=== PATIENT | female | born 1945 | race Native Hawaiian/Other Pacific Islander ===

== ENCOUNTER 2016-09-27 10:51 | Outpatient (CLI) | payer OTHER ==
[2016-09-27 11:21] LABS: PLATELET COUNT 132 K/uL (152-353)
[2016-09-27 11:33] LABS: POTASSIUM 3.6 mmol/L (3.6-5.2); SODIUM 139 mmol/L (136-145)
== END 2016-09-27 19:26 | disposition home or self-care (01) ==
LOC: LABW 10:51
PROVIDERS: Dermatology
DX: Z79.899 Other long term (current) drug therapy (principal); Z51.81 Encounter for therapeutic drug level monitoring
CPT/HCPCS: 36415; 80053; 85027

== ENCOUNTER 2016-11-19 10:26 | Outpatient (CLI) | payer OTHER ==
[2016-11-19 12:17] LABS: POTASSIUM 3.7 mmol/L (3.6-5.2); SODIUM 142 mmol/L (136-145)
== END 2016-11-19 11:30 | disposition home or self-care (01) ==
LOC: LABW 10:26
PROVIDERS: Internal Medicine Nephrology
DX: I10 Essential (primary) hypertension (principal)
CPT/HCPCS: 36415; 80048

== ENCOUNTER 2017-02-25 14:47 | Outpatient (CLI) | payer OTHER ==
[2017-03-04] MEDS ORDERED: CARV12.5 PO (19:44)
[2017-03-04] MEDS ORDERED: HYZAAR1 TA2 PO (19:44)
[2017-03-04] MEDS ORDERED: LIPITOR10 MG PO (19:45)
[2017-03-04] MEDS ORDERED: B121000 MCG PO (19:47)
[2017-03-04] MEDS ORDERED: ALPH-E-MIXED400 UNIT OR (19:49)
[2017-03-04] MEDS ORDERED: ASPIRIN 81 LOW81 MG PO (19:50)
[2017-03-04] MEDS ORDERED: BREO ELLIPTA 101 INH IN (19:53)
[2017-03-04] MEDS ORDERED: OMEGA 31000 MG OR (19:54)
[2017-03-04] MEDS ORDERED: D32000 UNIT OR (19:55)
[2017-03-04] MEDS ORDERED: PROAIR HFA IN (19:56)
[2017-03-04] MEDS ORDERED: AMLO2.5T PO (19:57)
[2017-03-04] MEDS ORDERED: OTEZLA 10 & 201 TAB PO (19:58)
== END 2017-02-25 19:18 | disposition home or self-care (01) ==
LOC: RAD 14:47
DX: J20.8 Acute bronchitis due to other specified organisms (principal)

== ENCOUNTER 2017-10-12 08:12 | Outpatient (CLI) | payer OTHER ==
[~2017-10-12 08:12] MED LIST: ALPH-E-MIXED400 UNIT OR; AMLO2.5T PO; ASPIRIN 81 LOW81 MG PO; B121000 MCG PO; BREO ELLIPTA 101 INH IN; CARV12.5 PO; D32000 UNIT OR; HYZAAR1 TA2 PO; LIPITOR10 MG PO; OMEGA 31000 MG OR; OTEZLA 10 & 201 TAB PO; PROAIR HFA IN
[2017-10-12 08:44] LABS: PLATELET COUNT 148 K/uL (152-353)
[2017-10-12 09:57] LABS: POTASSIUM 4.2 mmol/L (3.6-5.2)
== END 2017-10-12 21:26 | disposition home or self-care (01) ==
LOC: LABW 08:12
PROVIDERS: Internal Medicine Nephrology
DX: I10 Essential (primary) hypertension (principal); E66.8 Other obesity; E55.9 Vitamin D deficiency, unspecified; R73.09 Other abnormal glucose
CPT/HCPCS: 36415; 80053; 80061; 82306; 82570; 84155; 85027

== ENCOUNTER 2017-12-24 13:52 | Inpatient (IN) | payer OTHER ==
[~2017-12-24] VITALS: Ht 165.1 cm; Wt 81.0 kg
[2017-12-24] MEDS ORDERED: ASCO500T18 PO (15:16)
[2017-12-24] MEDS ORDERED: BIOTIN1000 MCG PO (15:18)
[2017-12-24 17:32] LABS: PLATELET COUNT 124 K/uL (152-353)
[2017-12-24 18:19] VITALS: BP 130/49; TEMP 99; Ht 165.1 cm; Wt 81.0 kg
[2017-12-24 19:56] VITALS: BP 142/50; TEMP 100.5
[2017-12-24 23:32] VITALS: BP 144/44; TEMP 98.9
[2017-12-25 04:00] VITALS: BP 145/49; TEMP 100.3
[2017-12-25 06:44] LABS: PLATELET COUNT 120 K/uL (152-353)
[2017-12-25 06:59] LABS: POTASSIUM 3.7 mmol/L (3.6-5.2)
[2017-12-25 08:00] VITALS: BP 133/47; TEMP 99
[2017-12-25 12:00] VITALS: BP 154/46; TEMP 98.5
[2017-12-25 16:00] VITALS: BP 153/70; TEMP 99.7
[2017-12-25 20:00] VITALS: BP 150/57; TEMP 99.2
[2017-12-25 23:50] VITALS: BP 117/33; TEMP 99.3
[2017-12-26 04:00] VITALS: BP 120/46; TEMP 98.3
[2017-12-26 05:35] LABS: PLATELET COUNT 139 K/uL (152-353)
[2017-12-26 05:50] LABS: POTASSIUM 3.7 mmol/L (3.6-5.2)
[2017-12-26 07:16] VITALS: BP 124/45; TEMP 98.1
[2017-12-26 12:13] VITALS: BP 127/45; TEMP 97.8
== END 2017-12-26 17:09 | disposition short-term general hospital (02) | DRG 195 ==
LOC: MED/SURG 13:52
PROVIDERS: ADMIT Family Medicine
DX: J18.9 Pneumonia, unspecified organism (principal); J20.8 Acute bronchitis due to other specified organisms; E86.0 Dehydration; I10 Essential (primary) hypertension; H91.93 Unspecified hearing loss, bilateral; D72.828 Other elevated white blood cell count; R09.02 Hypoxemia
CPT/HCPCS: 36415; 80053; 83605; 83735; 83880; 84100; 85007; 85027; 85379; 87040; 87070; 87205; 94640; 94664; 94668; 94760; J0456; J0696; J1100; Q9963

== ENCOUNTER 2017-12-26 17:14 | Outpatient (CLI) | payer OTHER ==
[~2017-12-26 17:14] MED LIST changes: +ASCO500T18 PO; +BIOTIN1000 MCG PO
== END 2017-12-26 18:17 | disposition short-term general hospital (02) ==
LOC: AMB 17:14
DX: J18.9 Pneumonia, unspecified organism (principal); J20.8 Acute bronchitis due to other specified organisms; E86.0 Dehydration; I10 Essential (primary) hypertension; D72.828 Other elevated white blood cell count; H91.93 Unspecified hearing loss, bilateral
CPT/HCPCS: A0425; A0427

== ENCOUNTER 2018-04-10 15:14 | Outpatient (CLI) | payer OTHER | END 2018-04-10 19:27 | disposition home or self-care (01) | LOC: RAD 15:14 | DX: J44.1 Chronic obstructive pulmonary disease with (acute) exacerbation (principal) ==

== ENCOUNTER 2018-04-12 09:56 | Outpatient (CLI) | payer OTHER ==
[2018-04-12 10:19] LABS: POTASSIUM 4.2 mmol/L (3.6-5.2)
[2018-04-12 10:21] LABS: PLATELET COUNT 200 K/uL (152-353)
== END 2018-04-12 20:30 | disposition home or self-care (01) ==
LOC: LABW 09:56
PROVIDERS: Internal Medicine Nephrology
DX: I10 Essential (primary) hypertension (principal)
CPT/HCPCS: 36415; 80048; 85027

== ENCOUNTER 2018-09-11 11:51 | Outpatient (CLI) | payer OTHER | END 2018-09-11 23:01 | disposition home or self-care (01) | LOC: CT 11:51 | DX: S09.8XXA Other specified injuries of head, initial encounter (principal); W01.0XXA Fall on same level from slipping, tripping and stumbling without subsequent striking against object, initial encounter ==

== ENCOUNTER 2018-10-18 09:20 | Outpatient (CLI) | payer OTHER ==
[2018-10-18 09:58] LABS: PLATELET COUNT 144 K/uL (152-353)
== END 2018-10-18 19:11 | disposition home or self-care (01) ==
LOC: LABW 09:20
PROVIDERS: Internal Medicine Nephrology
DX: I10 Essential (primary) hypertension (principal); J44.9 Chronic obstructive pulmonary disease, unspecified; R73.09 Other abnormal glucose
CPT/HCPCS: 36415; 80053; 80061; 85027

== ENCOUNTER 2019-03-06 06:55 | Inpatient (IN) | payer OTHER ==
[2019-03-06] VITALS (21 sets, daily range): BP systolic 88–187; BP diastolic 34–86; TEMP 97.7–98.7; Ht 165.1 cm; Wt 81.7 kg
[~2019-03-06] VITALS: Ht 165.1 cm; Wt 81.7 kg
[2019-03-06 07:40] LABS: PLATELET COUNT 107 K/uL (152-353)
[2019-03-06 08:24] LABS: POTASSIUM 3.8 mmol/L (3.6-5.2); SODIUM 137 mmol/L (136-145)
[2019-03-06 09:10] LABS: PARTIAL THROMBOPLASTIN TIME 19.4 SECONDS (24.5-33.6)
[2019-03-06] MEDS ORDERED: COZAAR100 MG PO (17:21)
[2019-03-06] MEDS ORDERED: BREO ELLIPTA 101 INH INH (17:22)
[2019-03-06] MEDS ORDERED: HYDROCHLOROT12.5 M1 PO (17:22)
[2019-03-06] MEDS ORDERED: ALBU90AE13 INH (17:22)
[2019-03-06] MEDS ORDERED: ALBUTEROL0.083 % INH (17:23)
[2019-03-06] MEDS ORDERED: FLONASE AL50 MCG/ACT NAS (17:24)
[2019-03-06] MEDS ORDERED: BENICAR40 MG PO (17:25)
[2019-03-07] VITALS (16 sets, daily range): BP systolic 104–153; BP diastolic 37–337; TEMP 97.7–101.4
[2019-03-07 05:23] LABS: PLATELET COUNT 125 K/uL (152-353)
[2019-03-07 06:06] LABS: SODIUM 136 mmol/L (136-145)
[2019-03-08] VITALS: BP 103/46; TEMP 98
[2019-03-08 04:00] VITALS: BP 120/43; TEMP 98.3
[2019-03-08 05:30] LABS: PLATELET COUNT 124 K/uL (152-353)
[2019-03-08 06:06] LABS: POTASSIUM 4.3 mmol/L (3.6-5.2)
[2019-03-08 13:35] VITALS: BP 115/56; TEMP 98.9
[2019-03-08 20:00] VITALS: BP 108/50; TEMP 98
[2019-03-08 23:58] VITALS: BP 89/46; TEMP 98.4
[2019-03-09 03:58] VITALS: BP 104/47; TEMP 97.8
[2019-03-09 08:00] VITALS: BP 118/52; TEMP 98.6
[2019-03-09 09:05] LABS: PLATELET COUNT 107 K/uL (152-353)
[2019-03-09 09:07] LABS: POTASSIUM 3.8 mmol/L (3.6-5.2)
[2019-03-10 08:24] VITALS: BP 141/64; TEMP 98.1
[2019-03-10 09:08] LABS: PLATELET COUNT 124 K/uL (152-353)
[2019-03-10 09:24] LABS: POTASSIUM 3.5 mmol/L (3.6-5.2)
[2019-03-10 19:54] VITALS: BP 147/65; TEMP 98
[2019-03-10 23:54] VITALS: BP 137/63; TEMP 98.3
[2019-03-11 03:51] VITALS: BP 130/53; TEMP 98.5
[2019-03-11 05:13] LABS: PLATELET COUNT 118 K/uL (152-353)
[2019-03-11 05:39] LABS: POTASSIUM 3.6 mmol/L (3.6-5.2)
[2019-03-11 12:00] VITALS: BP 125/75; TEMP 98.6
[2019-03-11 16:00] VITALS: BP 131/66; TEMP 97.6
== END 2019-03-11 18:15 | disposition home or self-care (01) | DRG 308 ==
LOC: ED 06:55 → PCU 12:15 → ICU 12:15 → PCU 12:16 → ICU 13:27 → MED/SURG 03-07 17:35
PROVIDERS: Student in an Organized Health Care Education/Training Program; ADMIT Family Medicine
DX: I48.91 Unspecified atrial fibrillation (principal); J18.8 Other pneumonia, unspecified organism; J44.0 Chronic obstructive pulmonary disease with (acute) lower respiratory infection
CPT/HCPCS: 36415; 80048; 80053; 80202; 82550; 83735; 83880; 84100; 84132; 84484; 85027; 85379; 85610; 85730; 87040; 87070; 87205; 87502; 93005; 93306; 94640; 94664; 94668; 94760; 96365; 96375; 99284; 99285; J0456; J1642; J1644; J1885; J1956; J2930; J3370; J3475; Q9963

== ENCOUNTER 2019-05-17 08:24 | Outpatient (CLI) | payer OTHER ==
[~2019-05-17 08:24] MED LIST changes: +ALBU90AE13 INH; +ALBUTEROL0.083 % INH; +BENICAR40 MG PO; +BREO ELLIPTA 101 INH INH; +COZAAR100 MG PO; +FLONASE AL50 MCG/ACT NAS; +HYDROCHLOROT12.5 M1 PO
[2019-05-17 10:09] LABS: PLATELET COUNT 189 K/uL (152-353)
[2019-05-17 10:12] LABS: POTASSIUM 3.3 mmol/L (3.6-5.2)
== END 2019-05-17 20:11 | disposition home or self-care (01) ==
LOC: LABW 08:24
PROVIDERS: Internal Medicine Nephrology
DX: R73.09 Other abnormal glucose (principal); R05 Cough; I10 Essential (primary) hypertension; E78.00 Pure hypercholesterolemia, unspecified; E66.8 Other obesity
CPT/HCPCS: 36415; 80053; 82570; 84155; 85027

== ENCOUNTER 2019-08-14 08:07 | Outpatient (CLI) | payer OTHER | END 2019-08-14 19:13 | disposition home or self-care (01) | LOC: CT 08:07 | DX: Z91.81 History of falling (principal); R51 Headache ==

== ENCOUNTER 2019-12-04 10:43 | Outpatient (CLI) | payer OTHER ==
[2019-12-04 10:59] LABS: PLATELET COUNT 115 K/uL (152-353)
[2019-12-04 11:17] LABS: POTASSIUM 3.9 mmol/L (3.6-5.2)
== END 2019-12-04 20:34 | disposition home or self-care (01) ==
LOC: LABW 10:43
PROVIDERS: Internal Medicine Pulmonary Disease
DX: J45.40 Moderate persistent asthma, uncomplicated (principal)
CPT/HCPCS: 36415; 80053; 85027

== ENCOUNTER 2020-07-07 12:05 | Outpatient (CLI) | payer OTHER | END 2020-07-07 19:19 | disposition home or self-care (01) | LOC: RAD 12:05 | PROVIDERS: ATTEND Family Medicine | DX: R05 Cough (principal) ==

== ENCOUNTER → 2021-02-18 | Outpatient (CLI) | payer OTHER ==
[2021-02-18 10:27] LABS: PLATELET COUNT 197 K/uL (152-353)
[2021-02-18 10:40] LABS: POTASSIUM 4.5 mmol/L (3.6-5.2)
== END ==
LOC: LABW 10:13
PROVIDERS: ATTEND Internal Medicine Nephrology
DX: E66.9 Obesity, unspecified (principal); E78.00 Pure hypercholesterolemia, unspecified; R73.09 Other abnormal glucose; D69.6 Thrombocytopenia, unspecified; I48.91 Unspecified atrial fibrillation; J44.9 Chronic obstructive pulmonary disease, unspecified; N18.9 Chronic kidney disease, unspecified; Z79.01 Long term (current) use of anticoagulants; I12.9 Hypertensive chronic kidney disease with stage 1 through stage 4 chronic kidney disease, or unspecified chronic kidney disease
CPT/HCPCS: 36415; 80053; 80061; 85027

== ENCOUNTER 2021-04-15 13:01 | Outpatient (CLI) | payer OTHER | END 2021-04-15 20:44 | disposition home or self-care (01) | LOC: RAD 13:01 | PROVIDERS: ATTEND Family Medicine | DX: J44.0 Chronic obstructive pulmonary disease with (acute) lower respiratory infection (principal) ==

== ENCOUNTER 2021-08-04 14:42 | Outpatient (CLI) | payer OTHER, MEDICARE | END 2021-08-04 19:06 | disposition home or self-care (01) | LOC: US 14:42 | PROVIDERS: ATTEND Nurse Practitioner Family | DX: I10 Essential (primary) hypertension (principal) ==

== ENCOUNTER 2021-08-20 14:34 | Emergency (ER) | payer OTHER, MEDICARE ==
[~2021-08-20] VITALS: Ht 165.1 cm; Wt 78.0 kg
[2021-08-20 14:40] VITALS: TEMP 97.2
[2021-08-20 17:05] VITALS: BP 128/43
== END 2021-08-20 17:27 | disposition home or self-care (01) ==
LOC: ED 14:34
PROC: 2W39X1Z Immobilization of Left Upper Extremity using Splint (ICD-10-PCS; principal; 2021-08-20)
DX: S42.252A Displaced fracture of greater tuberosity of left humerus, initial encounter for closed fracture (principal); S13.8XXA Sprain of joints and ligaments of other parts of neck, initial encounter; R41.3 Other amnesia; W01.0XXA Fall on same level from slipping, tripping and stumbling without subsequent striking against object, initial encounter; Y92.213 High school as the place of occurrence of the external cause
CPT/HCPCS: 96372; 99283; J1170; J1885; J2405

== ENCOUNTER 2022-06-11 10:22 | Outpatient (CLI) | payer BC ==
[2022-06-11 10:49] LABS: PLATELET COUNT 143 K/uL (152-353)
[2022-06-11 11:24] LABS: POTASSIUM 3.6 mmol/L (3.6-5.2)
== END 2022-06-11 19:52 | disposition home or self-care (01) ==
LOC: LABW 10:22
PROVIDERS: ATTEND Internal Medicine Nephrology
DX: E78.00 Pure hypercholesterolemia, unspecified (principal); R73.09 Other abnormal glucose; D69.6 Thrombocytopenia, unspecified; I48.91 Unspecified atrial fibrillation; N18.31 Chronic kidney disease, stage 3a; Z79.01 Long term (current) use of anticoagulants; I12.9 Hypertensive chronic kidney disease with stage 1 through stage 4 chronic kidney disease, or unspecified chronic kidney disease; R82.998 Other abnormal findings in urine
CPT/HCPCS: 36415; 80069; 81000; 82306; 82570; 83970; 84156; 84550; 85027; 87077; 87086; 87088; 87186

== ENCOUNTER 2022-08-25 12:06 | Outpatient (CLI) | payer BC | END 2022-08-25 23:01 | disposition home or self-care (01) | LOC: RAD 12:06 | PROVIDERS: ATTEND Nurse Practitioner Family | DX: J44.1 Chronic obstructive pulmonary disease with (acute) exacerbation (principal) ==

== ENCOUNTER 2022-10-05 09:21 | Outpatient (CLI) | payer BC, OTHER | END 2022-10-05 19:20 | disposition home or self-care (01) | LOC: MAMMO 09:21 | PROVIDERS: ATTEND Nurse Practitioner Family | DX: N63.10 Unspecified lump in the right breast, unspecified quadrant (principal); N64.59 Other signs and symptoms in breast | CPT/HCPCS: G0279 ==

== ENCOUNTER 2022-10-22 01:55 | Observation (INO) | payer BC, OTHER ==
[~2022-10-22] VITALS: Ht 165.1 cm; Wt 70.8 kg
[2022-10-22] VITALS (7 sets, daily range): BP systolic 94–148; BP diastolic 48–79; TEMP 97.4–98.7; Ht 165.1 cm; Wt 70.8 kg
[2022-10-22 03:07] LABS: POTASSIUM 3.4 mmol/L (3.6-5.2)
[2022-10-22 03:17] LABS: PARTIAL THROMBOPLASTIN TIME 32.1 SECONDS (23.9-36.7)
[2022-10-22 03:21] LABS: PLATELET COUNT 148 K/uL (152-353)
[2022-10-22] MEDS ORDERED: HYDROCHLOROTHIAZIDE PO (10:27)
[2022-10-22] MEDS ORDERED: DONEPEZIL HYDRO10 MG PO (10:28)
[2022-10-22] MEDS ORDERED: MONT10TA PO (10:28)
[2022-10-22] MEDS ORDERED: FLONASE AL50 MCG/ACT NAS (10:29)
[2022-10-22] MEDS ORDERED: ELIQUIS5 MG PO (10:29)
[2022-10-22] MEDS ORDERED: CYPROHEPTADINE H4 MG PO (10:29)
[2022-10-22] MEDS ORDERED: LIPITOR20 MG PO (10:30)
[2022-10-22] MEDS ORDERED: LEVAQUIN250 MG PO (15:20)
== END 2022-10-22 11:16 | disposition home or self-care (01) ==
LOC: ED 01:55 → MED/SURG 03:32
PROVIDERS: Family Medicine; ADMIT Internal Medicine; ATTEND Internal Medicine
DX: R07.89 Other chest pain (principal); N39.0 Urinary tract infection, site not specified; I48.20 Chronic atrial fibrillation, unspecified; Z79.01 Long term (current) use of anticoagulants; J44.9 Chronic obstructive pulmonary disease, unspecified; N28.89 Other specified disorders of kidney and ureter; R06.02 Shortness of breath; D72.828 Other elevated white blood cell count
CPT/HCPCS: 36415; 80053; 81000; 82550; 83605; 83880; 84484; 85027; 85610; 85730; 87040; 87077; 87086; 87088; 87186; 93005; 96360; 96361; 99221; 99284; G0378; J2270

== ENCOUNTER 2022-11-02 15:23 | Emergency (ER) | payer BC, OTHER ==
[~2022-11-02] VITALS: Ht 165.1 cm; Wt 72.6 kg
[2022-11-02 15:23] VITALS: TEMP 97.6
[~2022-11-02 15:23] MED LIST changes: +CYPROHEPTADINE H4 MG PO; +DONEPEZIL HYDRO10 MG PO; +ELIQUIS5 MG PO; +HYDROCHLOROTHIAZIDE PO; +LEVAQUIN250 MG PO; +LIPITOR20 MG PO; +MONT10TA PO
[2022-11-02 16:00] LABS: POTASSIUM 4.1 mmol/L (3.6-5.2)
[2022-11-02 16:02] LABS: PLATELET COUNT 304 K/uL (152-353)
[2022-11-02 16:11] LABS: PARTIAL THROMBOPLASTIN TIME 37.2 SECONDS (23.9-36.7)
[2022-11-02 23:20] VITALS: BP 141/75
== END 2022-11-02 23:20 | disposition short-term general hospital (02) ==
LOC: ED 15:23
PROVIDERS: Emergency Medicine
DX: I48.20 Chronic atrial fibrillation, unspecified (principal); I31.39 Other pericardial effusion (noninflammatory)
CPT/HCPCS: 36415; 36600; 80053; 81002; 82805; 83880; 84443; 84484; 85027; 85610; 85730; 87040; 93005; 96361; 96365; 96372; 96375; 99285; J1650; J2060; J3490; Q9963